=== PATIENT | male | born 1945 | race Caucasian/White ===

== ENCOUNTER 2016-07-12 06:00 | Day surgery (SDC) | payer MEDICARE, OTHER ==
[2016-07-08 14:19] LABS: HEMATOCRIT 40.1 % (42.0-54.0); MCH 33.7 pg (26.0-34.0); MCHC 34.9 g/dL (31.0-37.0); MCV 96.4 fL (80.0-100.0); MEAN PLATELET VOLUME 9.2 fL (7.4-10.4); RBC 4.16 10x6/uL (4.20-6.10); RDW 13.6 % (11.5-14.5); WBC 7.9 10x3/uL (4.8-10.8)
[2016-07-08 14:28] LABS: CALC OSMOLALITY 272 mosm/kg (275-300); CALCIUM 9.1 mg/dL (8.5-10.1); CARBON DIOXIDE 28.4 mmol/L (21.0-32.0); CHLORIDE - SERUM 101 mmol/L (98-107); CREATININE - SERUM 0.8 mg/dL (0.6-1.3); GLUCOSE 104 mg/dL (74-106); POTASSIUM - SERUM 3.9 mmol/L (3.5-5.1); SODIUM 137 mmol/L (136-145); UREA NITROGEN 10 mg/dL (7-18); eGFR NON AFRICAN AMERICAN > 90 mL/min (90-120)
[~2016-07-12] VITALS: Ht 167.6 cm; Wt 81.6 kg
[~2016-07-12 06:00] MED LIST: HYZAAR 100-12.51 TAB; HYZAAR 50-12.51 TAB PO; MULTIPLE VITAMI1 TA1 PO; NEURONTIN 300300 MG PO; NORVASC5 MG PO; PROSCAR5 MG PO; RESTORIL15 MG PO; ULTRAM50 MG PO; ZYLOPRIM300 MG PO
[2016-07-12 06:36] VITALS: BP 124/76; Ht 167.6 cm; Wt 81.6 kg
--- NOTE | 2016-07-12 09:34 | NUR ---
PT EATING ICE CHIPS AT THIS TIME. TOLERATING WELL.
--- NOTE | 2016-07-12 10:13 | NUR ---
[address] DR. HUTCHINSON ROUNDS GIVING RESULTS TO PT AND SON.
--- NOTE | 2016-08-17 10:17 | OP ---
PATIENT NAME: CLAUDIA HENSON MEDICAL RECORD: [id number] :41 LOCATION:D.OPS ADMISSION DATE: SURGEON: EMMIE HUTCHINSON MD DATE OF OPERATION: 07/12/2016 PREOPERATIVE DIAGNOSIS: Complex colon polyp at 30 cm. POSTOPERATIVE DIAGNOSES: Complex colon polyp at 30 cm with a secondary sessile polyp, 6 mm x 7 mm, at 10 cm, on a fold in the rectum. Left inferior prostate nodule. PROCEDURES: 1. Total colonoscopy to cecum. 2. Snare polypectomy. 3. Epinephrine injection through the sclerotherapy needle at the base of the polyp, which was a pedunculated polyp with a long stalk. 4. Tattooing at the base of the polyp through a sclerotherapy needle utilizing Svetlana ink. 5. Argon plasma coagulation therapy to the base of the polyp to ablate any residual polypoid tissue at the base. 6. Hot biopsy forceps polypectomy times 1. SURGEON: Emmie Hutchinson MD BUILDING STONECUTTER: None. BLOOD LOSS: Minimal. ANESTHESIA: General. COMPLICATIONS: None. I have reviewed the endoscopic pictures. I have reviewed the endoscopic report. The patient was found to have a polyp within the sigmoid colon at 30 cm. Cold biopsies were performed by Dr. Borjas. The risks, possible complications and alternatives to procedure were explained to the patient. He elects to proceed. OPERATIVE COURSE: The patient was conveyed to the operating room electively on 07/12/2016. General anesthesia was induced by anesthesia staff. The patient was placed in the Jaramillo position. A digital rectal examination was performed. It revealed a left inferior prostatic nodule. A colonoscope was inserted through the anus. It was easily advanced to the cecum. The prep was excellent. I irrigated and aspirated extensively. I dragged the folds. The pullback was greater than a 14-minute pullback. The pedunculated polyp was easily identified. I withdrew into the rectum. On the lowest valve of Melendrez, on its inferior aspect, on the fold, there was a small sessile polyp, which was removed in its entirety utilizing the hot biopsy forceps polypectomy technique. A retroflexed view was obtained in the rectum. I then unretroflexed the scope. I advanced it to 30 cm. As I felt that bleeding could be a significant problem in this case, I elected for an epinephrine injection into the stalk. A sclerotherapy needle was advanced. We then deployed the needle. We injected a total of 6 cc of an epinephrine solution. I then withdrew the needle and OPERATIVE REPORT [id number] CLAUDIA HENSON withdrew the sclerotherapy needle. We then advanced the sclerotherapy needle again. I injected 2 cc of Svetlana ink at the base of the polyp. The sclerotherapy needle was then removed. I advanced a snare. I was able to advance the snare around the polyp and at the mid portion of the stalk. The cautery was then utilized and I was able to amputate the distal aspect of the polyp along with some of the stalk. An endoscopic retrieval net was then advanced. I was able to retrieve the polyp in its entirety. I then readvanced the scope. At the polypoid base, I utilized the argon plasma sand caster, which is a radiofrequency type of ablation of a benign colonic process to ablate back the polypoid base. There was no evidence of perforation. No evidence of a full thickness burn. The endoscope was then withdrawn under direct vision. I will see the patient back in my office in 2-3 weeks. If there is no malignancy within this pedunculated polyp, then I will return the patient's surveillance colonoscopy needs back over to Dr. Borjas, the patient's third helper. TRANSINT:[id number] Voice Confirmation ID: [id number] DOCUMENT ID: [id number] EMMIE HUTCHINSON MD at 1017 CC: ADI BORJAS MD and VALENTIN SCHILLING MD [id number] DICTATION DATE: 07/12/16 1012 AMBULATORY CARE COORDINATOR: 07/12/16 1113 [facility] 07/12/16 [facility] [address] [place] [address]
--- NOTE | 2016-08-17 10:17 | HP ---
PATIENT: CLAUDIA HENSON MEDICAL RECORD: [id number] ACCOUNT: [id number] LOCATION:SEMAJ : 41 ADMISSION DATE: 07/12/16 HISTORY AND PHYSICAL EXAMINATION CHIEF COMPLAINT: Complex polyp. HISTORY OF PRESENT ILLNESS: The patient has a complex polyp at 30 cm. We are asked to remove the polyp, likely with the argon plasma digitizer operator, which is a radiofrequency type of ablation of a benign colonic process. I reviewed the endoscopic report. I reviewed the endoscopic pictures. The risks, possible complications and alternatives to procedure were explained to the patient. He elects to proceed. ALLERGIES: No known drug allergies. HOME MEDICATIONS: Hyzaar, Norvasc, gabapentin, Proscar, Restoril, and allopurinol. SOCIAL HISTORY: Nonsmoker. PAST MEDICAL HISTORY AND PAST SURGICAL HISTORY: Hypertension, colon polyps. REVIEW OF SYSTEMS: Negative for diabetes or thyroid problems. Negative for angina, myocardial infarction, coronary artery bypass graft, stents or gastroesophageal reflux. The review of systems is negative other than as is described above. PHYSICAL EXAMINATION: GENERAL: The patient does not appear acutely ill. He does not appear chronically ill. VITAL SIGNS: Reviewed. HEAD: External ears appear normal. EYES: Extraocular movements are intact. NECK: Trachea is midline. CHEST: No intercostal retractions. PULMONARY: Nonlabored, no stridor. ABDOMEN: Nontender. EXTREMITIES: No peripheral cyanosis. INTEGUMENT: No rash, no ulcerations. PSYCHIATRIC: Normal affect. IMPRESSION: Complex colon polyp at 30 cm. PLAN: Colonoscopy with polypectomy, likely utilizing the argon plasma digitizer operator. TRANSINT:[id number] Voice Confirmation ID: [id number] DOCUMENT ID: [id number] HISTORY AND PHYSICAL [id number] CLAUDIA HENSON ROBERT MD at 1017 CC: ADI MELÉNDEZ MD and VALENTIN SCHILLING MD [id number] DICTATION DATE: 07/12/16 0950 GUEST RELATIONS COORDINATOR: 07/12/16 1006 [facility] 07/12/16 [facility] [address] [place] [address]
== END 2016-07-12 11:05 | disposition home or self-care (01) ==
LOC: D.OPS 06:00 → D.PAN 08:00 → D.OPS 11:05
PROVIDERS: Anesthesiology
DX: D12.5 Benign neoplasm of sigmoid colon (principal); D12.8 Benign neoplasm of rectum; I10 Essential (primary) hypertension; Z79.899 Other long term (current) drug therapy; N40.2 Nodular prostate without lower urinary tract symptoms

== ENCOUNTER → 2018-09-03 09:12 | Outpatient (CLI) | payer MEDICARE ==
[2016-07-12 06:36] VITALS: BMI 29.1
== END | disposition home or self-care (01) ==
LOC: D.HCCARDIO 09:12
PROVIDERS: ATTEND Internal Medicine Cardiovascular Disease
DX: R06.02 Shortness of breath (principal)

== ENCOUNTER 2018-09-17 10:47 | Outpatient (CLI) | payer MEDICARE ==
[~2018-09-17] VITALS: Ht 167.6 cm; Wt 79.5 kg
--- NOTE | ~2018-09-17 | HEMODYNAMI ---
PATIENT:CLAUDIA HENSON MEDICAL RECORD: [id number] : 41 LOCATION:DRONAN ADMISSION DATE: 09/17/18 Generatedon:09/17/201813:36 Patient name: CLAUDIA HENSON Patient #: [id number] SSN: : 1945 Date of study: 09/17/2018 Page: Of Hemodynamic Procedure Report Patient Data Patient Demographics Procedure consent was obtained First Name: CLAUDIA Gender: Male Last Name: SIXTO : 1945 [facility] Initial: C Age: 73 year(s) Patient #: [id number] Race: Unknown Additional ID: [id number] Contact details Address: [address] [place] [address] State: [place] City: [facility] Zip code: [address] Past Medical History Allergies: No known allergies Admission Admission Data Admission Date: 09/17/2018 Admission Time: 10:47 Admit Source: Other Weight (lbs.): 175.27 Weight (kg.): 79.5 Lab Results Lab Result Date: 09/17/2018 Lab Result Time: 11:05 Biochemistry Name Units Result Min Max BUN mg/dl 19 --(----)*- 7 18 Creatinine mg/dl 0.7 --(*---)-- 0.6 1.3 CBC Name Units Result Min Max Hematocrit % 44.6 --(*---)-- 42 54 Hemoglobin g/dl 15.4 --(-*--)-- 13.5 17.5 Procedure Procedure Types Cath Procedure Diagnostic Procedure LHC LHC w/Coronaries Sedation Charges Moderate Sedation up to 15 minutes Procedure Description Procedure Date Procedure Date: 09/17/2018 Procedure Start Time: 13:17 Procedure End Time: 13:35 Procedure Staff Name Function Jesu Gratn MD Performing Physician Nikolas Cruz RT Monitor Madeline Ly RT Scrub Migue Boyce RN Nurse Procedure Data Cath Procedure Fluoroscopy Diagnostic fluoroscopy Total fluoroscopy Time: 7 time: 7 min min Diagnostic fluoroscopy Total fluoroscopy dose: dose: 1435 mGy 1435 mGy Contrast Material Contrast Material Type Amount (ml) Isovue 300 65 Entry Location Entry Primary Successful Side Size Upsize Upsize Entry Closure Prajapati ccessful Closure Location (Fr) 1 (Fr) 2 (Fr) Remarks Device Remarks Radial Right 6 Fr Mechanical artery Short Compression Estimated blood loss: 5 ml Diagnostic catheters Device Type Used For End Catheter Placement DIAGNOSTIC Cesar 110cm Procedure 5Fr catheter ([id number]) DIAGNOSTIC [place] 110cm 5 Procedure Fr catheter (150120) Procedure Complications No complications Procedure Medications Medication Administration Route Dosage 0.9% NaCl I.V. 100 ml/hr Oxygen etCO2 Nasal cannula 2 l/min Heparin Flush Bag added to field 2 bags (1000units/500ml NS) Lidocaine 2% added to field 20 Radial Cocktail added to field 1 syringe (Verapomil 2mg/Nitro 400mcg/Heparin 1500units) Versed I.V. 2 mg Fentanyl I.V. 100 mcg Versed I.V. 0.5 mg Radial Cocktail I.A. 1 syringe (Verapomil 2mg/Nitro 400mcg/Heparin 1500units) Versed I.V. 1 mg Versed I.V. 0.5 mg Hemodynamics Rest HGB: 15.4 (g/dl) Heart Rate: 63 (bpm) Pressure Samples Time Site Value (mmHg) Purpose Heart Use Rate(bpm) 13:19 LV 131/-6,3 Snapshot 75 Gradients Valve Time Site Site Mean SEP/DFP Peak To Heart Use 1 2 (mmHg) (sec/min) Peak Rate (mmHg) (bpm) Aortic 13:19 LV AO 76 Snapshots Pre Cath Intra NCS Post Cath Vital Signs Time Heart Resp SPO2 etCO2 NIBP (mmHg) Rhythm Pain Sedation Rate (ipm) (%) (mmHg) Status Level (bpm) 13:04:29 62 19 100 31 141/78(119) NSR 0 (11) 10(A) , No pain 13:08:41 61 10 99 44.6 130/78(112) NSR 0 (11) 10(A) , No pain 13:12:49 66 10 94 32.5 135/77(115) NSR 0 (11) 10(A) , No pain 13:17:01 67 12 96 34.8 131/74(112) NSR 0 (11) 10(A) , No pain 13:21:10 73 13 96 29.5 121/73(96) NSR 0 (11) 10(A) , No pain 13:25:18 73 12 94 32.5 121/68(101) NSR 0 (11) 9(A) , No pain 13:29:26 69 18 96 37.8 125/69(102) NSR 0 (11) 9(A) , No pain 13:33:34 68 13 96 32.5 131/72(100) NSR 0 (11) 9(A) , No pain Medications Time Medication Route Dose Verified Delivered Reason Notes Effectiveness by by 13:06:07 0.9% NaCl I.V. 100 Migue Migue Per ml/hr Austen Boyce physician RN RN 13:06:16 Oxygen etCO2 2 l/min Migue Migue for low 02 Nasal Lorigan Austen sats cannula RN RN 13:06:25 Heparin Flush added 2 bags Migue Migue used for Bag to Austen Boyce procedure (1000units/500ml field LUIS RN NS) 13:06:41 Lidocaine 2% added 20ml Migue Migue for local to vial Lorigan Austen anesthetic field LUIS RN 13:07:25 Radial Cocktail added 1 Migue Migue used for (Verapomil to syringe Austen Boyce procedure 2mg/Nitro field LUIS RN 400mcg/Heparin 1500units) 13:07:37 Versed I.V. 2 mg Migue Migue for sedation Austen Boyce RN RN 13:07:46 Fentanyl I.V. 100 mcg Migue Migue for sedation Austen Boyce RN RN 13:11:28 Versed I.V. 0.5 mg Migue Migue for sedation Austen Boyce RN RN 13:17:39 Radial Cocktail I.A. 1 Migue Jesu for (Verapomil syringe Austen woo 2mg/Nilesh RN 400mcg/Heparin 1500units) 13:18:51 Versed I.V. 1 mg Migue Migue for sedation Austen Boyce RN RN 13:20:54 Versed I.V. 0.5 mg Migue Migue for sedation Austen Boyce RN mate chief Log Time Note 12:42:40 Informed consent obtained and on chart 12:42:43 Admit Source: Other 12:42:59 Diagnostic Cath status Elective 12:43:10 Time tracking: Regular hours (M-F 7:00 - 5:00) 12:43:14 Plan of Care:Hemodynamics will remain stable., Cardiac rhythm will remain stable., Comfort level will be maintained., Respiratory function will remain adequate., Patient/ family verbilizes understanding of procedure., Procedure tolerated without complication., Recovers from procedure without complications.. 12:45:45 H&P Date Dictated: 08/21/2018 Within 30 days and on chart., H&P Addendum completed by physician on day of procedure. (MUST COMPLETE FOR ALL OUTPATIENTS). 12:45:48 Madeline WALKER(R) sent for patient. Start room use. 12:47:28 Lab Result : BUN 19 mg/dl 12:47:28 Lab Result : Creatinine 0.7 mg/dl 12:47:28 Lab Result : Hemoglobin 15.4 g/dl 12:47:28 Lab Result : Hematocrit 44.6 % 12:47:30 Lab results completed and on chart. 12:47:39 Patient Weight : 175.27 lbs 12:49:47 Patient received from Pre/Post Procedure Room to CCL 1 Alert and oriented. Tansferred to table in Supine position. 12:49:48 Warm blankets applied, and sharmila hugger turned on for patient comfort. 12:49:49 Correct patient and procedure confirmed by team. 12:49:49 ECG and BP/O2 sat monitors applied to patient. 13:03:21 Vital chart was started 13:03:22 Baseline sample Acquired. 13:03:28 Rhythm: sinus rhythm 13:03:29 Full Disclosure recording started 13:03:30 Pre-procedure instructions explained to patient. 13:03:30 Pre-op teaching completed and patient verbalized understanding. 13:03:38 Family in waiting room. 13:03:42 Patient NPO since Breakfast. 13:03:49 Patient allergic to No known allergies 13:03:52 Is the patient allergic to Iodine/contrast media? No. 13:03:53 Is patient on blood thinner?No 13:03:54 Patient diabetic? No. 13:03:56 Previous problem with sedation/anesthesia? No ? 13:03:58 Snore? No 13:03:58 Sleep apnea? No 13:03:59 Deviated septum? No 13:04:00 Opens mouth fully? Yes 13:04:00 Sticks out tongue? Yes 13:04:01 Airway obstruction? No ? 13:04:03 Dentures? No ? 13:04:05 Pre procedure: right dorsailis pedis pulse 2+ Normal; easily identifiable; not easily obliterated 13:04:07 Modified Dom's test Ulnar < 7 seconds 13:04:09 Patient pain scale 0/10 ?. 13:04:14 IV patent on arrival in left wrist with 0.9% NaCl at [facility]. 13:04:17 Right Radial & Right Groin area was prepped with chlora-prep and draped in sterile fashion 13:04:18 Alarms reviewed by R. N. 13:04:18 Sharps counted by scrub and verified by R.N. 13:04:21 Use device set Radial Dx or PCI 13:04:21 ACIST Syringe (02895) opened to sterile field. 13:04:22 Medline Cath Pack ([id number]) opened to sterile field. 13:04:22 Bag Decanter (2002S) opened to sterile field. 13:04:23 ACIST Hand Control (87468) opened to sterile field. 13:04:23 ACIST Manifold (92550) opened to sterile field. 13:04:24 Tegaderm 4 x 4 (1626W) opened to sterile field. 13:04:24 MBrace Wrist Support ([id number]) opened to sterile field. 13:04:25 SHEATH 6FR Slender (92-1060) opened to sterile field. 13:04:26 DIAGNOSTIC WIRE .035 260cm J wire (460067) opened to sterile field. 13:04:33 Physician arrived 13:04:33 --------ALL STOP TIME OUT------ 13:04:34 Final Timeout: patient, procedure, and site verified with staff and physician. All members of the team are in agreement. 13:04:35 Right Radial & Right Groin site verified by team. 13:04:38 Maximum allowable Isovue 300 dose 300ml. Physician notified. (300ml for normal creatinines. For patients with creatinine of 1.7 or higher multiply weight(kg) x 5 divided by creatinine.) 13:04:41 Fire Safety Assessment: A--An alcohol-based skin anteseptic being used preoperatively., C--Open oxygen or nitrous oxide is being used., D--An ESU, laser, or fiber-optic light is being used. 13:04:43 Physical assessment completed. ASA score P 2 - A patient with mild systemic disease as per Jesu Grant MD. 13:04:46 Sedation plan: IV Moderate Sedation Medication:Versed, Fentanyl 13:06:07 0.9% NaCl 100 ml/hr I.V. was administered by Migue Boyce RN; Per physician; 13:06:16 Oxygen 2 l/min etCO2 Nasal cannula was administered by Migue Boyce RN; for low 02 sats; 13:06:25 Heparin Flush Bag (1000units/500ml NS) 2 bags added to field was administered by Migue Boyce RN; used for procedure; 13:06:41 Lidocaine 2% 20ml vial added to field was administered by Migue Boyce RN; for local anesthetic; 13:07:25 Radial Cocktail (Verapomil 2mg/Nitro 400mcg/Heparin 1500units) 1 syringe added to field was administered by Migue Boyce RN; used for procedure; 13:07:37 Versed 2 mg I.V. was administered by Migue Boyce RN; for sedation; ::46 Fentanyl 100 mcg I.V. was administered by Migue Boyce RN; for sedation; 13:10:40 NEEDLE Cook 21G 4cm Radial ([id number]) opened to sterile field. 13:11:28 Versed 0.5 mg I.V. was administered by Migue Boyce RN; for sedation; 13:13:07 Zero performed for pressure channel P1 13:13:10 Zero performed for pressure channel P1 13:13:14 Zero performed for pressure channel P1 13:13:19 Zero performed for pressure channel P1 13:17:19 Procedure started. 13:17:23 Local anesthetic to right radial artery with Lidocaine 2% by Jesu Grant MD.INITIAL ACCESS ONLY 13:17:33 A 6 Fr Short sheath was inserted into the Right Radial artery 13:17:39 Radial Cocktail (Verapomil 2mg/Nitro 400mcg/Heparin 1500units) 1 syringe I.A. was administered by Jesu Grant MD; for vasodilation; 13:18:18 A DIAGNOSTIC Cesar 110cm 5Fr catheter ([id number]) was advanced over the wire and used for Procedure. 13:18:51 Versed 1 mg I.V. was administered by Migue Boyce RN; for sedation; 13:19:16 LV hemodynamics recorded. 13:19:17 LV gram done using KHAN 13:19:20 Injector settings: Ml/sec: 5, Volume: 15, 13:19:36 EF : 55 % 13:20:54 Versed 0.5 mg I.V. was administered by Migue Boyce RN; for sedation; 13:21:08 Catheter removed. unable to cannulate vessel. 13:21:19 A DIAGNOSTIC [place] 110cm 5 Fr catheter ([id number]) was advanced over the wire and used for Procedure. 13:23:10 RCA angiography performed. 13:24:25 Catheter exchanged over wire. 13:24:54 GUIDE 5FR EBU 3.5 catheter ([id number]) opened to sterile field. 13:25:05 5 Fr EBU 3.5 guide catheter was inserted over the wire 13:28:53 LCA angiography performed. 13:30:00 Catheter removed. 13:30:03 TR BAND Standard ([id number]) opened to sterile field. 13:30:13 Sheath removed intact; hemostasis achieved with Mechanical Compression to the Right Radial artery. 13:30:15 Procedure ended.(Physican Out) 13:31:14 Fluoroscopy time 07.00 minutes. 13:31:19 Fluoroscopy dose: 1435 mGy 13:31:19 Flurop Dose total: 1435 13:31:22 Contrast amount:Isovue 300 65ml. 13:31:24 Sharps counted by scrub and verified by R.N. 13:31:41 Insertion/operative site no bleeding no hematoma. 13:31:47 Post Procedure Pulses reassessed and unchanged 13:31:50 Post-procedure physical assessment completed. ASA score P 2 - A patient with mild systemic disease as per Jesu Grant MD. 13:31:53 Post procedure rhythm: unchanged. 13::55 Estimated blood loss: 5 ml 13:31:57 Post procedure instruction explained to patient.Patient verbalizes understanding. 13:31:57 Patient needs reinforcement of post procedure teaching. 13:32:27 Procedure type changed to Cath procedure, Diagnostic procedure, LHC, LHC w/Coronaries, Sedation Charges, Moderate Sedation up to 15 minutes 13:33:24 Procedure and supply charges have been captured, reviewed, submitted and are correct. 13:35:18 Procedure Complication : No complications 13:35:21 Vital chart was stopped 13:35:21 See physician's report for complete and final results. 13:35:22 Report given to Pre/Post Procedure Room. 13:35:24 Patient transfered to Pre/Post Procedure Room with Stretcher. 13:35:26 Procedure ended. 13:35:26 Full Disclosure recording stopped 13:35:31 End room use (Document Last) Device Usage Item Name Manufacture Quantity Catalog Hospital Part Current Minimal Lot# / Number Charge Number Stock Stock Serial# Code ACIST Acist 1 [id number] [id number] 416856 001318 20 Syringe Medical (04703) Systems Inc Medline Medline 1 [id number] 024883 66182 032633 5 Cath Pack ([id number]) Bag Microtek 1 2001S 460180 28027 104302 5 Decanter Medical Inc. () ACIST Hand Acist 1 83565 468383 271011 104387 5 Control Medical (19010) Systems Inc ACIST Acist 1 26658 073150 313617 804931 5 Manifold Medical (27209) Systems Inc Tegaderm 4 3M 1 1626W 097463 956364 306156 5 x 4 (1626W) MBrace Advanced 1 140-0250-00 804703 71719 058447 5 Wrist Vascular Support Dynamics ([id number]) SHEATH 6FR Terumo 1 [id number] 751893 249041 576029 5 Slender (80-1060) DIAGNOSTIC St Lino 1 019662 854018 624039 142820 30 WIRE .035 260cm J wire (717721) DIAGNOSTIC Terumo 1 40-5023 147525 639994 083818 5 Cesar 110cm 5Fr catheter (580686) DIAGNOSTIC Terumo 1 40-5013 163357 573540 056039 5 [place] 110cm 5 Fr catheter (233683) GUIDE 5FR Medtronic 1 [id number] 994839 888672 116914 1 EBU 3.5 catheter ([id number]) TR BAND Terumo 1 [id number] 850526 144830 309705 40 Standard ([id number]) NEEDLE [facility] 1 I46514 119469 181984 238331 5 21G 4cm Radial (H40832) Signature Audit [place] Stage Time Signature Unsigned Intra-Procedure 09/17/2018 Nikolas Cruz 1:36:08 PM RT(R) Signatures Monitor : Nikolas Cruz RT Signature : Date : Time : [place] [id number] [facility]
[2018-09-17] MEDS ORDERED: RESTORIL15 MG PO (11:00)
[2018-09-17 11:15] VITALS: BP 142/67; Ht 167.6 cm; Wt 79.5 kg
[2018-09-17 11:21] LABS: BASOPHILS 0.5 % (0-2); EOSINOPHILS 3.6 % (0-7); HEMATOCRIT 44.6 % (42.0-54.0); HEMOGLOBIN 15.4 g/dL (13.5-17.5); IMMATURE GRANULOCYTES 0.2 % (0-5); MCH 32.8 pg (26.0-34.0); MCHC 34.5 g/dL (31.0-37.0); MCV 94.9 fL (80.0-100.0); MEAN PLATELET VOLUME 9.7 fL (7.4-10.4); MONOCYTES 8.4 % (2-11); NEUTROPHILS 48.3 % (40-80); PLATELET COUNT 259 10x3/uL (130-400); RDW 13.5 % (11.5-14.5); WBC 6.2 10x3/uL (4.8-10.8)
[2018-09-17 11:29] LABS: CALC OSMOLALITY 283 mosm/kg (275-300); CALCIUM 8.8 mg/dL (8.5-10.1); CARBON DIOXIDE 26.2 mmol/L (21.0-32.0); CHLORIDE - SERUM 108 mmol/L (98-107); CREATININE - SERUM 0.7 mg/dL (0.6-1.3); GLUCOSE 110 mg/dL (74-106); SODIUM 141 mmol/L (136-145); UREA NITROGEN 19 mg/dL (7-18); eGFR NON AFRICAN AMERICAN > 90 mL/min (90-120)
[2018-09-17 11:33] LABS: POTASSIUM - SERUM 5.3 mmol/L (3.5-5.1)
--- NOTE | 2018-09-17 13:45 | NUR ---
PT RECEIVED VIA STRETCHER FROM QUILL STRIPPER FOR RECOVERY. PT AWAKE SLIGHTLY DROWSY. TR BAND AND IMMOBILIZER IN PLACE, SMALL HEMATOMA NOTED RIGHT ABOVE PUNCTURE SITE FROM QUILL STRIPPER. NO ACTIVE BLEEDING OR SWELLING NOTED. CAP REFILL BRISK. HR NSR RATE 62, BP 131/69, O2 SAT 95%. PT DENIES ANY PAIN OR DISCOMFORT. CALL LIGHT IN REACH, AT BEDSIDE.
--- NOTE | 2018-09-17 14:02 | NUR ---
PT SITTING IN SEMI FOWLERS POSITION. TR BAND IN PLACE, DRESSING CDI NO BLEEDING OR ADDITIONAL SWELLING NOTED. SM HEMATOMA ALMOST RESOLVED. HR 60, BP 124/64, 02 SAT 96. PT DENIES PAIN OR NEEDS. CALL LIGHT IN REACH.
--- NOTE | 2018-09-17 14:34 | NUR ---
PT AWAKE, EATING. DENIES PAIN OR NEEDS. TR BAND AND IMMOBILIZER IN PLACE, NO BLEEDING OR SWELLING NOTED. VSS.
--- NOTE | 2018-09-17 14:50 | NUR ---
5CC AIR REMOVED FROM TR BAND, NO BLEEDING OR HEMATOMA NOTED. VSS, PT DENIES PAIN OR NEEDS. CALL LIGHT IN REACH, AT BEDSIDE.
--- NOTE | 2018-09-17 15:05 | NUR ---
3 ADD'L CC AIR REMOVED FROM TR BAND, NO BLEEDING OR HEMATOMA NOTED. DISCHARGE INSTRUCTIONS REVIEWED W PT AND , BOTH VERBALIZED UNDERSTANDING. CALL LIGHT IN REACH.
--- NOTE | 2018-09-17 15:20 | NUR ---
MONITORS REMOVED, IV DC'D W CATH INTACT. PT UP TO DRESS FOR DISCHARGE W ASSIST FROM .
--- NOTE | 2018-09-17 15:30 | NUR ---
TR BAND AND REMAINING AIR REMOVED. NO BLEEDING NOTED, SMALL AREA OF SWELLING STILL THERE FROM INSPECTOR METAL FABRICATING. PT INSTRUCTED TO WATCH AREA CLOSELY FOR ANY ADDITIONAL SWELLING OR BLEEDDING. PT TO MEDS ROOM THEN 0DISCHARGED TO PRIVATE VEHICE VIA WC.
== END 2018-09-17 15:30 | disposition home or self-care (01) ==
LOC: D.CATH 10:47
PROVIDERS: ATTEND Internal Medicine Cardiovascular Disease
DX: I25.119 Atherosclerotic heart disease of native coronary artery with unspecified angina pectoris (principal); Q24.5 Malformation of coronary vessels; Z01.812 Encounter for preprocedural laboratory examination